=== PATIENT | male | born 1960 | race Caucasian/White ===

== ENCOUNTER 2025-06-01 23:19 | Emergency (ER) | payer OTHER, SELFPAY ==
--- OUTSIDE RECORDS SUMMARY | 2025-05-16 04:57 | XMS_ITS | Continuity of Care Document ---
Author Organization [facility] [place] [address] Phone Care Team Providers Care Instrumentation Engineering Technician Name Role Phone VENESSA KENYON DO Primary Care Provider VENESSA KENYON DO Referring Provider [phone] Geovanna Brewer Attending Provider Care Teams Patient Care Team Team Status: Active Member Role/Relationship Status Dates VENESSA KENYON DO Primary Care Provider Active Patient Care Team Team Status: Inactive Member Role/Relationship Status Dates VENESSA KENYON DO Primary Care Provider Active Start: May 16, 2025 End: May 16, 2025 VENESSA KENYON DO Referring Provider Active St art: May 16, 2025 End: May 16, 2025 NATALIO Ludwig ENP Attending Provider Active Start: May 16, 2025 End: May 16, 2025 Chief Complaint and Reason for Visit Chief Complaint Admit Date lower back px May 16, 2025 1 1:29am Reason for Visit Admit Date Elevated blood pressure reading May 16, 2025 11:29am Low back pain May 16, 2025 1 1:29am Allergies, Adverse Reactions, Alerts No known allergies Social History Smoking Status Status Start Date End Date Date of Observa tion Never smoked tobacco (finding) November 08, 2016 7:54am Observation Status Observation Response Date of Response Legal Sex Male Sex Assigned At Male October 17, 1 963 Family History Relationship Condition Age at Onset Recorded Date/T gaye Unknown Endocrine/Autoimmune?Type 2 diabetes Unkn own November 08, 2016 6:54am Problems Active Problems Problem Diagnosis/Recorded Date Onset Date Status C omments Low back pain May 16, 2025 12:50pm Unknown Active Elevated blood pressure reading May 16, 2025 12:51pm Unknown Active Inactive/Resolved Problems Problem Diagnosis/Recorded Date Onset Date Status C omments Sciatica November 08, 2016 6:45am Unknown Resolved Pro blem List clean-up per request of Phys. EHR Cmte Medications Medication Status Dose Units Route Directions Qty Days Refills S tart Date Stop Date End Date Reason(s) Instructions Adherence Metformin 500 MG tablet Discont inued 0 MG PO TWICE A DAY November 07, 2016 11:00p m Dece jenny 2024 12:40 pm Fexofenadin e (Liz Allergy) 60 MG tablet Active 0 MG PO DAILY November 07, 2016 11:00p m On Hold: Per Patient Unknown Atorvastati n 10 MG tablet Discont inued 0 MG PO DAILY November 07, 2016 11:00p m Dece jenny 2024 12:40 pm Atenolol 25 MG tablet Active 25 MG PO DAILY November 07, 2016 11:00p m Unknown Aspirin 81 MG tablet,chew able Active 81 MG PO DAILY November 07, 2016 11:00p m On Hold: Per Patient Unknown Hydrocodone -Acetaminop hen 1 TAB tablet Active 1 - 2 EACH PO Q6H as needed for Pain 15 0 November 07, 2016 11:00p m On Hold: Per Patient Unknown Cyclobenzap rine 10 MG tablet Active 10 MG PO THREE TIMES A DAY as needed for Spasms 20 0 November 07, 2016 11:00p m On Hold: Per Patient Unknown Atorvastati n 10 mg tablet Active 80 MG PO DAILY [facility] er 2024 12:40p m Complies with drug therapy Metformin 500 mg tablet Active 1000 MG PO TWICE A DAY Dece er 2024 12:40p m Complies with drug therapy Telmisartan 40 mg tablet Active MG PO Dece er 2024 12:00a m Complies with drug therapy Methimazole 5 mg tablet Active MG PO Dece er 2024 12:00a m Complies with drug therapy Gabapentin 300 mg capsule Active MG PO [facility] er 2024 12:00a m Complies with drug therapy Empaglifloz in (Jardiance) 25 mg tablet Active MG PO [facility] er 2024 12:00a m Complies with drug therapy Cyclobenzap rine 10 mg tablet Active 10 MG PO THREE TIMES A DAY as needed for muscle spasm 20 0 [facility] er 2024 12:00a m Complies with drug therapy Diclofenac Potassium 50 mg tablet Active 50 MG PO THREE TIMES A DAY as needed for pain 30 0 [facility] er 2024 12:00a m Complies with drug therapy Methylpredn isolone (Medrol (Arturo)) 4 mg tablets,dos e pack Active 0 PO per package directions 21 0 [facility] er 2024 12:00a m PO PER PKG DIR for 6 days Complies with drug therapy Vital Signs Vital Reading Result Reference Range Collection Date/Time Height 70 [in_i] May 16, 025 12:41pm Weight 94.34 kg May 16, 025 12:41pm Body Temperature 36.8 Brynn 36.4-37.9 May 12:41pm Heart Rate 81 /min 60-100 May 16, 12:41pm Respiratory rate 18 /min 12-May 12:41pm Oxygen saturation by Pulse oximetry 97 % 92-100 May 16, 2025 1 2:41pm BP Systolic 141 mm[Hg] 90-130 May 16, 2 025 12:41pm BP Diastolic 96 mm[Hg] 60-90 May 16, 025 12:41pm BMI (Body Mass Index) 29.9 kg/m2 [facility] 2024 12:41pm Insurance Providers Guarantor JAUN Ghosh Address [address] [address] Contact Info. Home Phone: Payer Group Member ID Coverage Type Subscriber Relationship to Subscriber Effective Date Expiration Date [facility] [id number] null JAUN COOK JR Id: [id number] [address] [facility] [id number] Home Phone: Self Encounters Encounter Location(s) Arrival/Admit Date Discharge/Departure Date Discharge/Departure Disposition Provider(s) Departed Physician/ Provider Office Visit -[facility] [place] May 16, 2025 11:29am May 16, 2025 12:56pm Discharged to home care or self care (routine discharge) Caleb Nunez ENP Recent Diagnosis Onset Date Admit Date Elevated blood pressure reading Unknown May 16, 2025 11:29am Low back pain Unknown May 16 11:29am Assessments Diagnosis Onset Date Resolution Status Admit Date Elevated blood pressure reading acute May 16 11:29am Low back pain chronic May 11:29am Plan of Treatment Author Geovanna [facility] Authored May 16, 2025 1 2:54pm Differential diagnosis that were considered may include: Substance abuse, muscle strain, disk issue (herniation, bulging, slipped, protrusion), Oa, fx, sciatica, spondylosis, spinal stenosis, ankylosing spondylitis, abscess, AAA, kidney stone, pyelonephritis, uti, , myeloma, aortic dissection, caudal equina, DDD, DJD, scoliosis Treatment options discussed, see AVS for more pt tx plan that was discussed, needs work note and would also like light duty, Pt politely declined pain med offer of Toradol injection and xrays Pt expressed being happy and satisfied with the care provided today and thanked me. Pharmacy verf[facility] back in room, work note done, avs given, pt dc by me, and shown the exit Future Tests Future scheduled test information is unavailable Pending Tests Pending diagnostic test information is unavailable Future Visits Future appointment information is unavailable Future Procedures Future procedure information is unavailable Future Medications Future medication information is unavailable Patient Instructions Patient instructions are unavailable Progress Note Author Geovanna [facility] Note Date/Time May 16, 2025 1 2:56pm [facility] [place] [address] [place], [address] Date of service: 05/16/25 PATIENT: JAUN COOK JR PREFERRED NAME: PRONOUNS: MEDICAL RECORD#: [id number] DATE OF : 1960 cc: VENESSA MONTES DO [facility] report # [id number] Intake Intake Intake Visit Reasons: lower back px Clinical Staff Note: Patient presents today for low back pain x 1 days. 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 He tried to go to work but the pain was too much. Are you having pain: Yes Antisqueak Filler Required: No Allergies No Known Drug Allergies Allergy (Verified 05/16/25 12:39) Home Medications - Last Reconciled 05/16/25 by Otoniel Salinas MA aspirin 81 mg PO DAILY atenolol 25 mg PO DAILY atorvastatin 80 mg PO DAILY cyclobenzaprine 10 mg PO TID PRN empagliflozin (Jardiance) mg PO fexofenadine (Liz Allergy) 0 mg PO DAILY gabapentin mg PO hydrocodone-acetaminophen 5-325 mg 1 - 2 ea PO Q6H PRN metformin 1,000 mg PO BID methimazole mg PO telmisartan mg PO PCP/Pharmacy Primary Care Provider: Luz Maria Pharmacy: [facility] Vital signs 3 11/08/16 07:17 05/16/25 12:41 Height 5 ft 10 in Weight 208 lb Body Mass Index 29.9 BP 141/96 H BP Location Left Brachial BP Position Sitting BP Cuff Size Adult BP Source Automatic Cuff Factors within 30 minutes of BP measurement none Respiration 18 Pulse 81 Pulse Source Doppler Rhythm Regular Temp 98.3 F Temp Source Temporal Artery Scan Pulse Oximetry 97 HPI HPI Details: Pt presents today c/o: acute L sided low back pain - Low back pain started yesterday morning - Pain is intermittent, described as on and off - No injury or trauma to the back - Pain is localized to the L side of the lower back - Patient works picking up garbage and attributes pain to possibly overdoing it at work, stating maybe the nature of my work PFSH Active Problems All Active Problems (Updated 05/16/25 @ 12:51 by NATALIO Ludwig, TRAMAINE) Elevated blood pressure reading (Acute) Low back pain (Chronic) Social History Social History Smoking Status: Former smoker Do you dip or chew tobacco?: No Do you vape?: No POLST Patient has POLST: No Review of Systems Constitutional Denies: Fever, Chills, Weakness or Changes in appetite or eating habits Ears, nose, mouth, and throat Denies: Neck pain Cardiovascular Denies: chest pain or shortness of breath with exertion Respiratory Denies: Shortness of breath or Wheezing Gastrointestinal Denies: Abdominal pain (no dysuria) Genitourinary Denies: Flank pain Musculoskeletal Denies: Neck pain or Muscle weakness Neurological Denies: Numbness in extremities Allergic/Immunologic Denies: Wheezing Exam Constitutional normal general appearance, no apparent distress, average body habitus and alert nursing notes and vitals reviewed HENMT normocephalic, hearing grossly normal bilaterally, external ears normal and external nose normal Eyes EOMs intact bilaterally, conjunctivae normal and normal visual price by confrontation Neck/C-Spine visual inspection normal, trachea midline and supple Respiratory breath sounds equal bilaterally, normal respiratory effort, clear to auscultation bilaterally, no wheezes and no rales Cardiovascular normal heart rate noted and regular rhythm noted Back/Pelvis spine normal to inspection, no thoracic spine tenderness, no lumbar spine tenderness, thoracic spine ROM normal, lumbar spine ROM normal, no paraspinal muscle tenderness noted and straight leg raise negative bilaterally Back - normal alignment, no swelling, no deformity, no vertebra or soft tissue tenderness no skin discoloration, from Extremities full ROM Neurology speech normal alert and oriented x3 Psychiatry mental status grossly normal, oriented x3, thought process normal and cooperative Skin skin color normal Assessment & Plan Assessment & Plan (1) Low back pain: Code(s): M54.50 - Low back pain, unspecified Plan: Differential diagnosis that were considered may include: Substance abuse, muscle strain, disk issue (herniation, bulging, slipped, protrusion), Oa, fx, sciatica, spondylosis, spinal stenosis, ankylosing spondylitis, abscess, AAA, kidney stone, pyelonephritis, uti, , myeloma, aortic dissection, caudalequina, DDD, DJD, scoliosis Treatment options discussed, see AVS for more pt tx plan that was discussed, needs work note and would also like light duty, Pt politely declined pain med offer of Toradol injection and xrays Pt expressed being happy and satisfied with the care provided today and thanked me. Pharmacy [facility] back in room, work note done, avs given, pt dc by me, and shown the exit Qualifiers: Chronicity: acute Back pain laterality: left Sciatica presence: without sciatica Qualified Code(s): M54.50 - Low back pain, unspecified (2) Elevated blood pressure reading: Code(s): R03.0 - Elevated blood-pressure reading, without diagnosis of hypertension Patient Instructions: Thank you for coming to [facility] today, and allowing me to be part of yourcare. I hope you feel better soon. - I am prescribing you pain medicine, a muscle relaxer, and steroids. You can take all three and see which ones help you the best. These will be sent to the pharmacy [facility] the [facility]. - I am providing you with a work note for today and tomorrow to be off work. - After that, you can try light duty for a few days. - You declined an X-ray of your back at this time. Please return to ER for worsening symptoms or concerns. Follow up with your primary care provider as needed or scheduled. Medications: New 2 cyclobenzaprine 10 mg PO TID PRN 20 tabs 0RF muscle spasm Geovanna L Daniella, AUTOMOTIVE PARTS SALESPERSON, ENP diclofenac potassium 50 mg PO TID PRN 30 tabs 0RF pain Geovanna L Daniella, AUTOMOTIVE PARTS SALESPERSON, ENP methylprednisolone (Medrol (Arturo)) PO PER PKG DIR for 6 days 21 ea 0RF Geovanna L Daniella, AUTOMOTIVE PARTS SALESPERSON, ENP On Hold 2 fexofenadine (Liz Allergy) Hold Comment: Per Patient PO DAILY Otoniel Salinas MA aspirin Hold Comment: Per Patient 81 mg PO DAILY Otoniel Salinas MA hydrocodone-acetaminophen 5-325 mg Hold Comment: Per Patient 1 - 2 ea PO Q6H PRN 15 tabs 0RF Pain Otoniel Salinas MA cyclobenzaprine Hold Comment: Per Patient 10 mg PO TID PRN 20 tabs 0RF Spasms Otoniel Salinas MA Blood Pressure: 2 Blood Pressure, (90/60 - 130/90) 141/96 mm Hg H Today, 12:41 Most recent systolic: >- 140 mm Hg Most recent diastolic: >- 90 mm Hg Second hypertensive reading SBP >=140 or DBP >=90: follow-up with your PCP in 1 month Coding Diagnoses Acute left-sided low back pain without sciatica M54.50 Chronicity: acute Back pain laterality: left Sciatica presence: without sciatica Elevated blood pressure reading R03.0 Additional Codes Controlling High Blood Pressure - Most recent systolic: >- 140 mm Hg ([id number]) Controlling High Blood Pressure - Most recent diastolic: >- 90 mm Hg ([id number]) <Electronically signed by Geovanna LANCE ENP> Signed Date/Time: 05/16/25 9230 This chart may have been produced in part or whole using voice recognition software. While efforts are made to proofread this document, sound alike and grammatical errors may occur.
[2025-06-01 23:31] VITALS: BP 127/73; PULSE 82; RESP 16; TEMP 36.5; O2SAT 95; BMI 27.5
--- NOTE | 2025-06-01 23:31 | DI.RAD.S_ITS ---
PROCEDURE: XR KNEE RT 3V INDICATIONS: Pain to right knee, no known injury TECHNIQUE: 3 views of the knee were acquired. COMPARISON: None. FINDINGS: Bones: No displaced fracture or traumatic malalignment. No suspicious bony lesions. Soft tissues: No joint effusion. No suspicious soft tissue calcifications. IMPRESSION: No acute bony abnormality or significant effusion. Dictated by: Stanley Cervantes M.D. on 06/02/2025 at 0:09 Approved by: Stanley Cervantes M.D. on 06/02/2025 at 0:10
[2025-06-02] VITALS (10 sets, daily range): BP systolic 124–145; BP diastolic 66–77; PULSE 62–73; RESP 18; O2SAT 87–98
[2025-06-02] MEDS: KETOROLAC 30 MG/ML VIAL IM (01:13)
--- NOTE | 2025-06-02 01:23 | ED.EXTPRO ---
HPI - Extremity Problem General Chief complaint: Extremity Problem,Nontraumatic Stated complaint: right knee px Time Seen by Provider: 06/02/25 00:36 Source: patient Mode of arrival: Wheelchair History of Present Illness HPI Narrative: 64-year-old male hx of diabetes but no prior right knee issues presents with sudden right knee pain that started 3 days ago and is worsening. He denies any trauma to the area. No other history. Related Data Previous Rx's ?Medication ?Instructions ?Recorded indomethacin 50 mg capsule 50 mg PO TID #21 caps 06/02/25 Allergies Allergy/AdvReac Type Severity Reaction Status Date / Time No Known Drug Allergies Allergy Verified 06/01/25 23:34 Review of Systems Review of Systems ROS Unobtainable: All systems reviewed & are unremarkable except as noted in HPI and below Patient History Social History Smoking Status: Never smoker Smoking Status: Never smoker Exam Narrative Exam Narrative: General: Patient appears to be in no acute distress, acting appropriately Head: normocephalic, atraumatic, HEENT: Pupils equal round reactive, eyes tracking well, neck supple, no JVD Heart: regular rate and rhythm, no murmurs, rubs, or gallops heard Lungs: clear to auscultation, no adventitious sounds Abdomen: soft , nontender, nondistended, positive bowel sounds Neurological: no focal neurological signs, moving all extremities well, alert and oriented x3, Psych: good judgment ,good insight, mood is normal. right knee: has some edema, pain with palpation, mai, drawer tests negative Initial Vital Signs Initial Vital Signs: Vital Signs Temperature 97.7 F 06/01/25 23:31 Pulse Rate 82 06/01/25 23:31 Respiratory Rate 16 06/01/25 23:31 Blood Pressure 127/73 06/01/25 23:31 Pulse Oximetry 95 06/01/25 23:31 Oxygen Delivery Method Room Air 06/01/25 23:31 Procedures Joint Aspiration Joint Asp./Inject. 1: Time Out Performed: Yes Side of body: right Joint Aspirated: knee Local Anesthetic: lidocaine 1% Amount of anesthesia used (mL): 5 Needle Size Used: Other (27) Medication Injected, if any: Triamcinolone Acetate Amount of medication injected (mL): 1 Patient Tolerated Procedure: Well and No complications Additional Comments: No fluid aspirated but joint space injected with lidocaine as per above and Kenalog 1 mL Course Orders Ordered: ED Orders 06/01/25 23:31 XR knee RT 3V Stat Discontinued Medications Colchicine (Colchicine 0.6 Mg Tablet) 1.2 mg PO NOW ONE Stop: 06/02/25 01:55 Last Admin: 06/02/25 02:07 Dose: 1.2 mg Documented By: ADELITA Ketorolac Tromethamine (Ketorolac 30 Mg/Ml Vial) 30 mg IM NOW ONE Stop: 06/02/25 01:06 Last Admin: 06/02/25 01:13 Dose: 30 mg Documented By: ADELITA Lidocaine HCl (Lidocaine 1% 20 Ml) 20 ml INJ INTRA-OP ONE Stop: 06/02/25 02:39 Last Admin: 06/02/25 02:47 Dose: Not Given Documented By: ADELITA Lidocaine HCl (Lidocaine 1% (Pf) 5 Ml) 5 ml INJ NOW ONE Stop: 06/02/25 02:43 Last Admin: 06/02/25 02:48 Dose: 5 ml Documented By: ADELITA Triamcinolone (Triamcinolone 40 Mg/Ml Vial) 40 mg INTRA-NICHOLE NOW ONE Stop: 06/02/25 02:30 Last Admin: 06/02/25 02:47 Dose: 40 mg Documented By: ADELITA Vital Signs Vital signs: Vital Signs - 8 hr 06/01/25 23:31 06/02/25 00:15 06/02/25 00:30 Temperature 97.7 F Pulse Rate 82 71 73 Respiratory Rate 16 Blood Pressure 127/73 Pulse Oximetry 95 96 97 Oxygen Delivery Method Room Air 06/02/25 01:00 06/02/25 01:33 06/02/25 01:34 Temperature Pulse Rate 70 68 67 Respiratory Rate Blood Pressure Pulse Oximetry 96 87 L 96 Oxygen Delivery Method 06/02/25 01:34 06/02/25 02:00 06/02/25 02:10 Temperature Pulse Rate 62 63 Respiratory Rate Blood Pressure 132/66 Pulse Oximetry 95 96 Oxygen Delivery Method 06/02/25 02:10 06/02/25 02:30 06/02/25 02:30 Temperature Pulse Rate 67 Respiratory Rate Blood Pressure 124/69 132/77 Pulse Oximetry 95 Oxygen Delivery Method 06/02/25 03:19 06/02/25 03:24 Temperature Pulse Rate 66 Respiratory Rate 18 Blood Pressure 145/73 H Pulse Oximetry 98 Oxygen Delivery Method Room Air MDM - Extremity (Nontraumatic) MDM Narrative Medical decision making narrative: 64-year-old male with sudden right knee pain that started about 3 days ago and progressively got worse. The knee is slightly warm and a bit more edematous. More concerns for gout. Less likely infected joint. Patient's pain improved with joint injection with steroid and lidocaine. Not much fluid was able to be aspirated. The patient will be given some indomethacin as well and instructed on gout. will follow up if symptoms worsen. Discharge Plan Departure Patient Disposition: Home Clinical Impression: Gout Qualifiers: Gout site: knee Gout etiology: unspecified cause Chronicity: acute Laterality: right Qualified Code(s): M10.9 - Gout, unspecified Instructions: DI for Gout Activity Restrictions/Additional Instructions: Potentially gout flare up. Try to follow a gout diet. Avoid too much meat and alcohol. Use medications as needed. Follow up if pain does not improve. Prescriptions: New indomethacin 50 mg capsule 50 mg PO TID Qty: 21 0RF Rx Instructions: administer with food or milk Stand Alone Forms: Patient Portal/API, Work Release Note
[2025-06-02] MEDS: COLCHICINE 0.6 MG TABLET 1.2 MG PO (02:07)
[2025-06-02] MEDS: TRIAMCINOLONE 40 MG/ML VIAL INTRA-ARTI (02:47)
[2025-06-02] MEDS: LIDOCAINE 1% (PF) 5 ML INJ (02:48)
== END 2025-06-02 03:25 | disposition home or self-care (01) ==
PROVIDERS: Emergency Provider Family Medicine
DX: M10.9 Gout, unspecified (principal)
CPT/HCPCS: 20610; 73562; 96372; 99283; J1885